=== PATIENT | female | born 1960 | race Caucasian/White ===

== ENCOUNTER 2019-04-22 20:06 | Inpatient (IN) ==
[2019-04-22] MEDS ORDERED: Morphine Sulfate Immed Rel 15 MG TABLET PO STA (20:34)
[2019-04-22] MEDS ORDERED: 0.9 % Sodium Chloride 1,000 ML IVC ONE (20:34)
[2019-04-22] MEDS ORDERED: Ondansetron 4 MG/2 ML VIAL IVP ONE (20:34)
[2019-04-22 21:47] LABS: Alanine Aminotransferase 11 Units/L (7-52); Albumin 4.4 g/dL (3.5-5.7); Albumin/Globulin Ratio 1.3 (1.1-2.2); Alkaline Phosphatase 110 Units/L (34-104); Aspartate Amino Transferase 19 Units/L (13-39); BUN/Creatinine Ratio 17 (6-26); Bilirubin,Direct 0.1 mg/dL (0.0-0.2); Bilirubin,Indirect 0.7 mg/dL (0.0-1.0); Bilirubin,Total 0.8 mg/dL (0.3-1.0); Blood Urea Nitrogen 16 mg/dL (8-23); Calcium 9.7 mg/dL (8.6-10.3); Carbon Dioxide 26 mEq/L (23-29); Chloride 102 mEq/L (98-107); Globulin 3.4 g/dL (2.4-3.5); Glucose 170 mg/dL (70-105); Lipase 19 Units/L (11-82); Osmolality,Calculated 297 (280-300); Potassium 4.4 mEq/L (3.5-5.1); Sodium 141 mEq/L (136-145); Total Protein 7.8 g/dL (6.4-8.9); eGFR For African Americans > 60 (> 60); eGFR For Non-African Americans 59 (> 60)
[2019-04-22 22:07] LABS: Basophils % 0.4 %; Mean Corpuscular Hemoglobin 32.7 pg (28.0-33.3)
[2019-04-22 22:09] LABS: Basophils # 0.1 K/mcL (0.0-0.2); Eosinophils % 0.1 %; Hematocrit 46.2 % (35.3-44.9); Hemoglobin 15.8 g/dL (11.5-15.4); Immature Granulocytes % 0.9 % (0-4); Lymphocytes # 2.9 K/mcL (0.6-4.6); Lymphocytes % 11.4 %; Mean Corpuscular HGB Conc 34.2 g/dL (31.6-35.5); Mean Corpuscular Volume 95.7 fL (83.0-100.0); Mean Platelet Volume 9.6 fL (9.4-12.4); Monocytes # 1.9 K/mcL (0.0-1.3); Monocytes % 7.6 %; Neutrophils # 20.2 K/mcL (1.6-8.9); Platelet Count 358 K/mcL (140-400); Red Blood Count 4.83 M/mcL (3.82-4.97); Red Cell Distribution Width 13.4 % (11.5-14.5); Segmented Neutrophils % 79.6 %; White Blood Count 25.4 K/mcL (4.3-11.1)
[2019-04-22] MEDS ORDERED: *HR* FentaNYL (PF) 100 MCG/2 ML VIAL IVP ONE (22:13)
[2019-04-22] MEDS ORDERED: levoFLOXacin 500 MG/100 ML 500 MG/100 ML BAG IVPB ONE (22:16)
[2019-04-22] MEDS ORDERED: MetroNIDAZOLE 500 MG/100 ML 500 MG/100 ML BAG IVPB ONE (22:16)
[2019-04-22 22:20] LABS: Platelet Estimate Normal (Normal)
[2019-04-22 22:45] LABS: Bilirubin,Urine Small (Negative); Blood,Urine Negative (Negative); Clarity,Urine Clear (Clear); Color,Urine Yellow (Yellow); Glucose,Urine (UA) 100 mg/dL (Normal); Ketones,Urine Negative (Negative); Leukocyte Esterase,Urine Negative (Negative); Nitrite,Urine Negative (Negative); Protein,Urine 30 mg/dL (Neg-Trace); Urobilinogen,Urine Normal (Normal)
[2019-04-22 22:47] LABS: Bacteria,Urine None Seen per hpf (None-Few); Hyaline Casts,Urine None Seen per lpf (None-Few); Squamous Epithelial Cell,Urine Many per lpf (None-Few); WBC,Urine 0-3 per hpf (0-3)
[2019-04-22] MEDS ORDERED: Ipratropium/Albuterol Neb 3 ML IH ONE (22:57)
[2019-04-23] MEDS ORDERED: Naloxone 0.4 MG/ML INJ IVP PRN (00:47)
[2019-04-23] MEDS ORDERED: levoFLOXacin 500 MG/100 ML 500 MG/100 ML BAG IVPB ONE (02:00)
[2019-04-23] MEDS ORDERED: *HR* OxyCODONE/APAP 5/325 TABLET PO ONE (02:31)
[2019-04-23] MEDS: *HR* OxyCODONE/APAP 5/325 TABLET PO PRN ×4 (03:58→21:06)
[2019-04-23 04:54] LABS: Basophils # 0.1 K/mcL (0.0-0.2); Basophils % 0.3 %; Eosinophils % 0.1 %; Hematocrit 41.3 % (35.3-44.9); Immature Granulocytes % 0.6 % (0-4); Lymphocytes % 18.4 %; Mean Corpuscular HGB Conc 33.4 g/dL (31.6-35.5); Mean Corpuscular Hemoglobin 32.5 pg (28.0-33.3); Mean Corpuscular Volume 97.2 fL (83.0-100.0); Mean Platelet Volume 9.8 fL (9.4-12.4); Monocytes # 2.4 K/mcL (0.0-1.3); Neutrophils # 14.9 K/mcL (1.6-8.9); Platelet Count 350 K/mcL (140-400); Red Blood Count 4.25 M/mcL (3.82-4.97); Red Cell Distribution Width 13.5 % (11.5-14.5); Segmented Neutrophils % 69.6 %; White Blood Count 21.4 K/mcL (4.3-11.1)
[2019-04-23 04:55] LABS: Hemoglobin 13.8 g/dL (11.5-15.4)
[2019-04-23 05:06] LABS: BUN/Creatinine Ratio 17 (6-26); Blood Urea Nitrogen 15 mg/dL (8-23); Calcium 8.3 mg/dL (8.6-10.3); Carbon Dioxide 25 mEq/L (23-29); Chloride 105 mEq/L (98-107); Glucose 105 mg/dL (70-105); Osmolality,Calculated 291 (280-300); Potassium 3.6 mEq/L (3.5-5.1); Sodium 140 mEq/L (136-145); eGFR For African Americans > 60 (> 60); eGFR For Non-African Americans > 60 (> 60)
[2019-04-23] MEDS: Cefepime HCl 2,000 MG in Water for inj. (sterile) 20 ML IVP SCH ×2 (06:42→18:59)
[2019-04-23] MEDS: *HR* Heparin 5,000 UNIT/ML VIAL SQ SCH ×3 (06:42→21:43)
[2019-04-23] MEDS: Famotidine 20 MG TABLET PO SCH (09:11)
[2019-04-23] MEDS: Gabapentin 300 MG CAPSULE PO SCH ×2 (09:11→14:08)
[2019-04-23] MEDS: MetroNIDAZOLE 500 MG/100 ML 500 MG/100 ML BAG IVPB SCH ×2 (09:11→16:24)
[2019-04-23 09:36] LABS: INR 1.1; Prothrombin Time 12.2 Seconds (9.4-12.1)
[2019-04-23] MEDS ORDERED: 0.9 % Sodium Chloride 500 ML ONE (10:12)
[2019-04-23] MEDS ORDERED: Nitroglycerin 0.4 MG TAB.SUBL SL PRN (14:22)
[2019-04-23] MEDS ORDERED: *HR* Dextrose 50 % in Water (Syg) 50 ML SYRINGE IVP PRN (17:12)
[2019-04-23] MEDS ORDERED: D5% in Water 1,000 ML IVC PRN (17:12)
[2019-04-23] MEDS ORDERED: Dextrose Gel 15 GM/37.5 ML TUBE PO PRN ×2 (17:12)
[2019-04-23] MEDS: Insulin LISPRO 300 UNITS/3 ML VIAL SQ SCH (18:58)
[2019-04-23] MEDS: Gabapentin 100 MG CAPSULE PO SCH (21:05)
[2019-04-23] MEDS: Insulin DETEMIR 100 UNIT/ML X5UNITS SQ SCH (21:37)
[2019-04-23] MEDS ORDERED: Acetaminophen IV 1,000 MG/100 ML INFUS..BTL IVPB ONE (22:23)
[2019-04-24] MEDS: MetroNIDAZOLE 500 MG/100 ML 500 MG/100 ML BAG IVPB SCH ×4 (00:12→23:13)
[2019-04-24] MEDS: *HR* OxyCODONE/APAP 5/325 TABLET PO PRN ×3 (04:01→21:19)
[2019-04-24] MEDS: Cefepime HCl 2,000 MG in Water for inj. (sterile) 20 ML IVP SCH ×2 (06:10→16:58)
[2019-04-24] MEDS: *HR* Heparin 5,000 UNIT/ML VIAL SQ SCH ×3 (06:10→21:20)
[2019-04-24] MEDS ORDERED: Acetaminophen IV 1,000 MG/100 ML INFUS..BTL IVPB ONE (06:13)
[2019-04-24 07:52] LABS: Basophils # 0.1 K/mcL (0.0-0.2); Basophils % 0.7 %; Eosinophils # 0.2 K/mcL (0.0-0.6); Eosinophils % 1.6 %; Hematocrit 43.7 % (35.3-44.9); Hemoglobin 14.3 g/dL (11.5-15.4); Immature Granulocytes % 0.7 % (0-4); Lymphocytes # 3.2 K/mcL (0.6-4.6); Lymphocytes % 23.6 %; Mean Corpuscular HGB Conc 32.7 g/dL (31.6-35.5); Mean Corpuscular Hemoglobin 32.4 pg (28.0-33.3); Mean Corpuscular Volume 99.1 fL (83.0-100.0); Mean Platelet Volume 9.8 fL (9.4-12.4); Monocytes # 1.7 K/mcL (0.0-1.3); Monocytes % 12.7 %; Neutrophils # 8.2 K/mcL (1.6-8.9); Platelet Count 347 K/mcL (140-400); Red Blood Count 4.41 M/mcL (3.82-4.97); Red Cell Distribution Width 13.7 % (11.5-14.5); Segmented Neutrophils % 60.7 %; White Blood Count 13.5 K/mcL (4.3-11.1)
[2019-04-24 08:12] LABS: Calcium 8.6 mg/dL (8.6-10.3); Magnesium 1.7 mg/dL (1.6-2.6); Potassium 3.8 mEq/L (3.5-5.1)
[2019-04-24] MEDS: Insulin LISPRO 300 UNITS/3 ML VIAL SQ SCH ×3 (10:59→17:00)
[2019-04-24] MEDS: Aspirin Enteric Coated 325 MG Tablet PO SCH (11:02)
[2019-04-24] MEDS: Gabapentin 100 MG CAPSULE PO SCH ×3 (11:02→21:19)
[2019-04-24] MEDS: Famotidine 20 MG TABLET PO SCH (11:02)
[2019-04-24] MEDS: Acetaminophen IV 1,000 MG/100 ML INFUS..BTL IVPB SCH ×3 (12:30→23:13)
[2019-04-24] MEDS: Insulin DETEMIR 100 UNIT/ML X5UNITS SQ SCH (21:20)
[2019-04-25 04:00] LABS: Basophils # 0.1 K/mcL (0.0-0.2); Basophils % 0.7 %; Eosinophils # 0.4 K/mcL (0.0-0.6); Eosinophils % 2.6 %; Hematocrit 39.8 % (35.3-44.9); Hemoglobin 12.9 g/dL (11.5-15.4); Immature Granulocytes % 0.5 % (0-4); Lymphocytes # 5.3 K/mcL (0.6-4.6); Lymphocytes % 35.9 %; Mean Corpuscular HGB Conc 32.4 g/dL (31.6-35.5); Mean Corpuscular Hemoglobin 32.7 pg (28.0-33.3); Mean Corpuscular Volume 100.8 fL (83.0-100.0); Mean Platelet Volume 9.6 fL (9.4-12.4); Monocytes # 1.6 K/mcL (0.0-1.3); Monocytes % 10.8 %; Neutrophils # 7.3 K/mcL (1.6-8.9); Platelet Count 313 K/mcL (140-400); Red Blood Count 3.95 M/mcL (3.82-4.97); Red Cell Distribution Width 13.3 % (11.5-14.5); Segmented Neutrophils % 49.5 %; White Blood Count 14.8 K/mcL (4.3-11.1)
[2019-04-25 04:21] LABS: BUN/Creatinine Ratio 20 (6-26); Blood Urea Nitrogen 20 mg/dL (8-23); Calcium 8.4 mg/dL (8.6-10.3); Carbon Dioxide 28 mEq/L (23-29); Chloride 106 mEq/L (98-107); Glucose 71 mg/dL (70-105); Magnesium 1.8 mg/dL (1.6-2.6); Osmolality,Calculated 297 (280-300); Potassium 3.7 mEq/L (3.5-5.1); Sodium 143 mEq/L (136-145); eGFR For African Americans > 60 (> 60); eGFR For Non-African Americans 58 (> 60)
[2019-04-25] MEDS: Acetaminophen IV 1,000 MG/100 ML INFUS..BTL IVPB SCH (05:32)
[2019-04-25] MEDS: *HR* Heparin 5,000 UNIT/ML VIAL SQ SCH ×3 (05:32→20:48)
[2019-04-25] MEDS: Cefepime HCl 2,000 MG in Water for inj. (sterile) 20 ML IVP SCH (05:33)
[2019-04-25] MEDS: metroNIDAZOLE 500 MG TABLET PO SCH ×3 (08:55→20:47)
[2019-04-25] MEDS: Famotidine 20 MG TABLET PO SCH (08:55)
[2019-04-25] MEDS: Insulin LISPRO 300 UNITS/3 ML VIAL SQ SCH ×4 (08:55→23:12)
[2019-04-25] MEDS: Aspirin Enteric Coated 325 MG Tablet PO SCH (08:55)
[2019-04-25] MEDS: Gabapentin 100 MG CAPSULE PO SCH ×3 (08:55→20:47)
[2019-04-25 09:11] LABS: Estimated Average Glucose 143 mg/dl
[2019-04-25] MEDS: *HR* OxyCODONE/APAP 5/325 TABLET PO PRN (16:12)
[2019-04-26] MEDS: *HR* Heparin 5,000 UNIT/ML VIAL SQ SCH (05:47)
[2019-04-26 07:36] LABS: Basophils # 0.1 K/mcL (0.0-0.2); Basophils % 0.9 %; Eosinophils # 0.5 K/mcL (0.0-0.6); Eosinophils % 3.4 %; Hemoglobin 14.3 g/dL (11.5-15.4); Immature Granulocytes % 0.4 % (0-4); Lymphocytes # 3.6 K/mcL (0.6-4.6); Lymphocytes % 26.9 %; Mean Corpuscular HGB Conc 33.3 g/dL (31.6-35.5); Mean Corpuscular Hemoglobin 32.9 pg (28.0-33.3); Mean Corpuscular Volume 99.1 fL (83.0-100.0); Mean Platelet Volume 9.6 fL (9.4-12.4); Monocytes # 1.4 K/mcL (0.0-1.3); Monocytes % 10.5 %; Neutrophils # 7.7 K/mcL (1.6-8.9); Platelet Count 381 K/mcL (140-400); Red Blood Count 4.34 M/mcL (3.82-4.97); Red Cell Distribution Width 13.2 % (11.5-14.5); Segmented Neutrophils % 57.9 %; White Blood Count 13.4 K/mcL (4.3-11.1)
[2019-04-26] MEDS: Insulin LISPRO 300 UNITS/3 ML VIAL SQ SCH ×2 (08:56→11:30)
[2019-04-26] MEDS: Gabapentin 100 MG CAPSULE PO SCH ×2 (09:14→13:49)
[2019-04-26] MEDS: metroNIDAZOLE 500 MG TABLET PO SCH ×2 (09:15→13:49)
[2019-04-26] MEDS: Famotidine 20 MG TABLET PO SCH (09:15)
[2019-04-26] MEDS: *HR* OxyCODONE/APAP 5/325 TABLET PO PRN (09:19)
[2019-04-26] MEDS: Aspirin Enteric Coated 325 MG Tablet PO SCH (09:19)
[2019-04-26 11:29] VITALS: BP 149/82
== END 2019-04-26 15:12 | disposition home health service (06) ==
LOC: 3ANU 20:06 → EMEROOARM 20:06 → SUATTDRO 22:41 → 3ANU 23:17
PROVIDERS: ADMIT Surgery; ATTEND Internal Medicine
PROC: IRDRAIN (2019-04-23 12:00)

== ENCOUNTER 2019-08-13 00:11 | Inpatient (IN) ==
[2019-08-13] MEDS ORDERED: Isovue-370 500 ML BOTTLE IVP ONE (00:19)
[2019-08-13] MEDS ORDERED: Ondansetron 4 MG/2 ML VIAL IVP ONE ×2 (00:20→14:39)
[2019-08-13 01:08] LABS: Basophils # 0.1 K/mcL (0.0-0.2); Basophils % 0.4 %; Eosinophils # 0.1 K/mcL (0.0-0.6); Eosinophils % 0.5 %; Hematocrit 41.9 % (35.3-44.9); Hemoglobin 13.7 g/dL (11.5-15.4); Immature Granulocytes % 0.4 % (0-4); Lymphocytes # 1.5 K/mcL (0.6-4.6); Lymphocytes % 7.1 %; Mean Corpuscular HGB Conc 32.7 g/dL (31.6-35.5); Mean Corpuscular Hemoglobin 31.7 pg (28.0-33.3); Mean Platelet Volume 9.7 fL (9.4-12.4); Monocytes # 1.2 K/mcL (0.0-1.3); Monocytes % 5.6 %; Platelet Count 367 K/mcL (140-400); Prothrombin Time 11.5 Seconds (9.4-12.1); Red Blood Count 4.32 M/mcL (3.82-4.97); Red Cell Distribution Width 14.3 % (11.5-14.5)
[2019-08-13 01:11] LABS: Activated Partial Thrombo Time 41.5 Seconds (26.0-36.0)
[2019-08-13 01:31] LABS: Alanine Aminotransferase 8 Units/L (7-52); Albumin 3.6 g/dL (3.5-5.7); Albumin/Globulin Ratio 1.1 (1.1-2.2); Alkaline Phosphatase 111 Units/L (34-104); Aspartate Amino Transferase 8 Units/L (13-39); BUN/Creatinine Ratio 15 (6-26); Bilirubin,Direct 0.2 mg/dL (0.0-0.2); Bilirubin,Indirect 0.5 mg/dL (0.0-1.0); Bilirubin,Total 0.7 mg/dL (0.3-1.0); Blood Urea Nitrogen 14 mg/dL (8-23); Calcium 9.5 mg/dL (8.6-10.3); Carbon Dioxide 22 mEq/L (23-29); Chloride 105 mEq/L (98-107); Globulin 3.3 g/dL (2.4-3.5); Glucose 207 mg/dL (70-105); Lipase 5 Units/L (11-82); Osmolality,Calculated 293 (280-300); Potassium 4.1 mEq/L (3.5-5.1); Sodium 138 mEq/L (136-145); Total Protein 6.9 g/dL (6.4-8.9); Troponin I 0.04 ng/mL (< 0.04); eGFR For African Americans > 60 (> 60); eGFR For Non-African Americans > 60 (> 60)
[2019-08-13] MEDS ORDERED: 0.9 % Sodium Chloride 1,000 ML IVC ONE (01:32)
[2019-08-13] MEDS ORDERED: Morphine Sulfate 2 MG/ML SYRINGE IVP ONE (01:56)
[2019-08-13] MEDS ORDERED: Cefepime HCl 2,000 MG in Water for inj. (sterile) 20 ML IVP ONE (02:42)
[2019-08-13] MEDS ORDERED: MetroNIDAZOLE 500 MG/100 ML 500 MG/100 ML BAG IVPB ONE (02:43)
[2019-08-13] MEDS ORDERED: *HR* HYDROmorphone (PF) 1 MG/ML SYRINGE IVP ONE (02:44)
[2019-08-13] MEDS ORDERED: Naloxone 0.4 MG/ML INJ IVP PRN ×2 (03:29→18:08)
[2019-08-13] MEDS ORDERED: Ondansetron 4 MG/2 ML VIAL IVP PRN ×2 (03:29→18:08)
[2019-08-13] MEDS ORDERED: 0.9 % Sodium Chloride 1,000 ML IVC SCH (03:30)
[2019-08-13 03:45] LABS: Bilirubin,Urine Small (Negative); Blood,Urine Negative (Negative); Clarity,Urine Clear (Clear); Color,Urine Dark Yellow (Yellow); Glucose,Urine (UA) 100 mg/dL (Normal); Ketones,Urine Trace mg/dL (Negative); Leukocyte Esterase,Urine Trace (Negative); Nitrite,Urine Negative (Negative); PH,Urine 5.5 pH Units (5.0-8.0); Protein,Urine 100 mg/dL (Neg-Trace); Specific Gravity,Urine > 1.030 (1.010-1.025); Urobilinogen,Urine Normal (Normal)
[2019-08-13 03:48] LABS: Bacteria,Urine None Seen per hpf (None-Few); Squamous Epithelial Cell,Urine Many per lpf (None-Few)
[2019-08-13 03:57] LABS: Hyaline Casts,Urine Few per lpf (None-Few); RBC,Urine 0-3 per hpf (0-3)
[2019-08-13] MEDS: Ketorolac 15 MG/ML VIAL IVP PRN ×2 (04:20→10:44)
[2019-08-13] MEDS ORDERED: Nitroglycerin 0.4 MG TAB.SUBL SL PRN ×2 (04:32→18:08)
[2019-08-13] MEDS ORDERED: *HR* Dextrose 50 % in Water (Syg) 50 ML SYRINGE IVP PRN ×2 (04:39→18:08)
[2019-08-13] MEDS ORDERED: D5% in Water 1,000 ML IVC PRN ×2 (04:39→18:08)
[2019-08-13] MEDS ORDERED: Dextrose Gel 15 GM/37.5 ML TUBE PO PRN ×4 (04:39→18:08)
[2019-08-13] MEDS: Insulin LISPRO 300 UNITS/3 ML VIAL SQ SCH ×3 (06:30→17:19)
[2019-08-13 07:26] LABS: Basophils # 0.1 K/mcL (0.0-0.2); Basophils % 0.3 %; Hematocrit 41.7 % (35.3-44.9); Hemoglobin 13.1 g/dL (11.5-15.4); Immature Granulocytes % 0.5 % (0-4); Lymphocytes # 1.9 K/mcL (0.6-4.6); Lymphocytes % 8.1 %; Mean Corpuscular HGB Conc 31.4 g/dL (31.6-35.5); Mean Corpuscular Hemoglobin 30.8 pg (28.0-33.3); Mean Corpuscular Volume 97.9 fL (83.0-100.0); Mean Platelet Volume 9.9 fL (9.4-12.4); Monocytes # 1.6 K/mcL (0.0-1.3); Monocytes % 7.2 %; Neutrophils # 19.2 K/mcL (1.6-8.9); Platelet Count 369 K/mcL (140-400); Red Blood Count 4.26 M/mcL (3.82-4.97); Red Cell Distribution Width 14.6 % (11.5-14.5); Segmented Neutrophils % 83.9 %; White Blood Count 22.9 K/mcL (4.3-11.1)
[2019-08-13] MEDS: Gabapentin 100 MG CAPSULE PO SCH ×3 (08:07→22:16)
[2019-08-13 08:12] LABS: Alanine Aminotransferase 8 Units/L (7-52); Albumin 3.4 g/dL (3.5-5.7); Albumin/Globulin Ratio 1.1 (1.1-2.2); Alkaline Phosphatase 103 Units/L (34-104); Aspartate Amino Transferase 7 Units/L (13-39); BUN/Creatinine Ratio 16 (6-26); Bilirubin,Total 0.7 mg/dL (0.3-1.0); Blood Urea Nitrogen 14 mg/dL (8-23); Carbon Dioxide 25 mEq/L (23-29); Chloride 104 mEq/L (98-107); Globulin 3.2 g/dL (2.4-3.5); Glucose 175 mg/dL (70-105); Osmolality,Calculated 291 (280-300); Potassium 4.3 mEq/L (3.5-5.1); Sodium 138 mEq/L (136-145); Total Protein 6.6 g/dL (6.4-8.9); eGFR For African Americans > 60 (> 60); eGFR For Non-African Americans > 60 (> 60)
[2019-08-13] MEDS ORDERED: Aspirin Enteric Coated 81 MG Tablet PO SCH ×2 (09:00)
[2019-08-13] MEDS ORDERED: lisinopriL 10 MG TABLET PO SCH (09:00)
[2019-08-13] MEDS ORDERED: NON-FORMULARY MEDICATION 1 EACH EACH (Omega-3/Dha/Epa/Fish Oil [Fish Oil 1,000 Mg Softgel] PO SCH (09:00)
[2019-08-13] MEDS ORDERED: cefOXitin 1,000 MG, 0.9 % Sodium Chloride 1,000 ML IR ONE (10:00)
[2019-08-13] MEDS ORDERED: cefOXitin 1,000 MG, Sodium Chloride IRRigation 1,000 ML IR ONE ×2 (10:00→18:08)
[2019-08-13] MEDS ORDERED: MetroNIDAZOLE 500 MG/100 ML 500 MG/100 ML BAG IVPB SCH (12:00)
[2019-08-13] MEDS ORDERED: Ondansetron 4 MG/2 ML VIAL ONE (14:36)
[2019-08-13] MEDS ORDERED: *HR* Succinylcholine 200 MG/10 ML VIAL IVP ONE (14:36)
[2019-08-13] MEDS ORDERED: Lidocaine -MPF 2% 2 ML VIAL ONE (14:36)
[2019-08-13] MEDS ORDERED: *HR* Rocuronium Bromide 50 MG/5 ML VIAL ONE (14:36)
[2019-08-13] MEDS ORDERED: Dexamethasone 4 MG/ML VIAL ONE (14:36)
[2019-08-13] MEDS ORDERED: *HR* FentaNYL (PF) 100 MCG/2 ML VIAL ONE (14:36)
[2019-08-13] MEDS ORDERED: *HR* Propofol 200 MG/20 ML VIAL IVP ONE (14:37)
[2019-08-13] MEDS ORDERED: *HR* HYDROmorphone PF 0.5 MG/0.5 ML SYRINGE IVP PRN (14:39)
[2019-08-13] MEDS ORDERED: *HR* OxyCODONE Immed Rel 5 MG TABLET PO PRN (14:39)
[2019-08-13] MEDS ORDERED: Cefepime HCl 2,000 MG in 0.9 % Sodium Chloride Mini Bag 100 ML IVPB SCH (15:00)
[2019-08-13] MEDS ORDERED: *HR* HYDROMORPHONE 2 MG/ML VIAL ONE (16:08)
[2019-08-13] MEDS: MetroNIDAZOLE 500 MG/100 ML 500 MG/100 ML BAG IVPB SCH (20:12)
[2019-08-13] MEDS: Morphine Sulfate 2 MG/ML SYRINGE IVP PRN (21:14)
[2019-08-14] MEDS: Insulin LISPRO 300 UNITS/3 ML VIAL SQ SCH ×5 (01:10→23:57)
[2019-08-14] MEDS: Morphine Sulfate 2 MG/ML SYRINGE IVP PRN (01:32)
[2019-08-14] MEDS: Cefepime HCl 2,000 MG in 0.9 % Sodium Chloride Mini Bag 100 ML IVPB SCH ×2 (02:57→14:29)
[2019-08-14] MEDS: MetroNIDAZOLE 500 MG/100 ML 500 MG/100 ML BAG IVPB SCH ×3 (03:36→20:38)
[2019-08-14] MEDS ORDERED: Acetaminophen IV 1,000 MG/100 ML INFUS..BTL IVPB ONE (05:39)
[2019-08-14] MEDS: lisinopriL 10 MG TABLET PO SCH (08:36)
[2019-08-14] MEDS: Gabapentin 100 MG CAPSULE PO SCH ×3 (08:38→20:40)
[2019-08-14] MEDS: Aspirin Enteric Coated 81 MG Tablet PO SCH (08:39)
[2019-08-14] MEDS: *HR* OxyCODONE Immed Rel 5 MG TABLET PO PRN ×2 (13:37→20:44)
[2019-08-14] MEDS ORDERED: Ketorolac 15 MG/ML VIAL IVP ONE (22:20)
[2019-08-15] MEDS: Cefepime HCl 2,000 MG in 0.9 % Sodium Chloride Mini Bag 100 ML IVPB SCH ×2 (02:14→15:29)
[2019-08-15 02:15] LABS: Basophils # 0.1 K/mcL (0.0-0.2); Basophils % 0.3 %; Eosinophils % 0.2 %; Hematocrit 38.7 % (35.3-44.9); Immature Granulocytes % 0.8 % (0-4); Lymphocytes # 2.8 K/mcL (0.6-4.6); Lymphocytes % 14.4 %; Mean Corpuscular HGB Conc 30.7 g/dL (31.6-35.5); Mean Corpuscular Hemoglobin 30.7 pg (28.0-33.3); Mean Platelet Volume 10.3 fL (9.4-12.4); Monocytes # 1.6 K/mcL (0.0-1.3); Monocytes % 8.2 %; Neutrophils # 14.9 K/mcL (1.6-8.9); Platelet Count 313 K/mcL (140-400); Red Blood Count 3.87 M/mcL (3.82-4.97); Red Cell Distribution Width 14.8 % (11.5-14.5); Segmented Neutrophils % 76.1 %; White Blood Count 19.6 K/mcL (4.3-11.1)
[2019-08-15 02:19] LABS: Hemoglobin 11.9 g/dL (11.5-15.4)
[2019-08-15 02:28] LABS: BUN/Creatinine Ratio 24 (6-26); Blood Urea Nitrogen 22 mg/dL (8-23); Calcium 8.9 mg/dL (8.6-10.3); Carbon Dioxide 24 mEq/L (23-29); Chloride 108 mEq/L (98-107); Glucose 103 mg/dL (70-105); Osmolality,Calculated 292 (280-300); Potassium 4.7 mEq/L (3.5-5.1); Sodium 139 mEq/L (136-145); eGFR For African Americans > 60 (> 60); eGFR For Non-African Americans > 60 (> 60)
[2019-08-15] MEDS: MetroNIDAZOLE 500 MG/100 ML 500 MG/100 ML BAG IVPB SCH ×3 (02:54→19:39)
[2019-08-15] MEDS: *HR* OxyCODONE Immed Rel 5 MG TABLET PO PRN ×4 (04:45→21:27)
[2019-08-15] MEDS: Insulin LISPRO 300 UNITS/3 ML VIAL SQ SCH ×3 (05:36→17:56)
[2019-08-15] MEDS: Gabapentin 100 MG CAPSULE PO SCH ×3 (08:28→19:40)
[2019-08-15] MEDS: Aspirin Enteric Coated 81 MG Tablet PO SCH (08:28)
[2019-08-15] MEDS: lisinopriL 10 MG TABLET PO SCH (08:29)
[2019-08-15] MEDS ORDERED: Acetaminophen 325 MG TABLET PO PRN (21:29)
[2019-08-15] MEDS ORDERED: *HR* Metoprolol 5 MG/5 ML VIAL IVP ONE ×3 (22:27→23:16)
[2019-08-15] MEDS ORDERED: Morphine Sulfate 2 MG/ML SYRINGE IVP ONE (22:29)
[2019-08-15] MEDS ORDERED: Levalbuterol Neb 1.25 MG/3 ML IH PRN (22:30)
[2019-08-15] MEDS ORDERED: 0.9 % Sodium Chloride 250 ML IVC ONE (23:38)
[2019-08-15] MEDS ORDERED: Ipratropium Neb 0.5 MG NEBULIZER IH PRN (23:45)
[2019-08-16] MEDS ORDERED: Heparin 25,000 UNIT/250 ML D5W 25,000 UNIT/250 ML IV.SOLN IVC SCH
[2019-08-16] MEDS: Insulin LISPRO 300 UNITS/3 ML VIAL SQ SCH ×4 (00:43→17:33)
[2019-08-16 00:46] LABS: Hematocrit 35.7 % (35.3-44.9); Hemoglobin 11.2 g/dL (11.5-15.4); Mean Corpuscular HGB Conc 31.4 g/dL (31.6-35.5); Mean Corpuscular Hemoglobin 31.2 pg (28.0-33.3); Mean Corpuscular Volume 99.4 fL (83.0-100.0); Platelet Count 287 K/mcL (140-400); Red Blood Count 3.59 M/mcL (3.82-4.97); Red Cell Distribution Width 14.7 % (11.5-14.5); White Blood Count 14.8 K/mcL (4.3-11.1)
[2019-08-16 00:51] LABS: INR 1.2; Prothrombin Time 13.9 Seconds (9.4-12.1)
[2019-08-16] MEDS: *HR* OxyCODONE Immed Rel 5 MG TABLET PO PRN ×5 (01:44→22:54)
[2019-08-16 01:48] LABS: Hematocrit 37.4 % (35.3-44.9); Hemoglobin 11.6 g/dL (11.5-15.4); Mean Platelet Volume 10.2 fL (9.4-12.4); Platelet Count 302 K/mcL (140-400); Red Blood Count 3.74 M/mcL (3.82-4.97); Red Cell Distribution Width 14.8 % (11.5-14.5)
[2019-08-16 02:08] LABS: BUN/Creatinine Ratio 30 (6-26); Blood Urea Nitrogen 27 mg/dL (8-23); Calcium 8.6 mg/dL (8.6-10.3); Carbon Dioxide 25 mEq/L (23-29); Chloride 109 mEq/L (98-107); Glucose 128 mg/dL (70-105); Osmolality,Calculated 293 (280-300); Potassium 4.8 mEq/L (3.5-5.1); Sodium 138 mEq/L (136-145); eGFR For African Americans > 60 (> 60); eGFR For Non-African Americans > 60 (> 60)
[2019-08-16] MEDS: Cefepime HCl 2,000 MG in 0.9 % Sodium Chloride Mini Bag 100 ML IVPB SCH ×2 (03:09→16:12)
[2019-08-16] MEDS: MetroNIDAZOLE 500 MG/100 ML 500 MG/100 ML BAG IVPB SCH ×3 (03:43→20:15)
[2019-08-16] MEDS: Famotidine 20 MG TABLET PO SCH (07:58)
[2019-08-16] MEDS: Aspirin Enteric Coated 81 MG Tablet PO SCH (07:58)
[2019-08-16] MEDS: Gabapentin 100 MG CAPSULE PO SCH ×3 (07:58→20:14)
[2019-08-16] MEDS: lisinopriL 10 MG TABLET PO SCH (10:03)
[2019-08-16] MEDS: *HR* Rivaroxaban 10 MG TABLET PO SCH (16:12)
[2019-08-17] MEDS: Insulin LISPRO 300 UNITS/3 ML VIAL SQ SCH ×3 (00:01→21:08)
[2019-08-17 01:11] LABS: Hematocrit 38.2 % (35.3-44.9); Hemoglobin 11.8 g/dL (11.5-15.4); Mean Corpuscular HGB Conc 30.9 g/dL (31.6-35.5); Mean Corpuscular Hemoglobin 30.8 pg (28.0-33.3); Mean Corpuscular Volume 99.7 fL (83.0-100.0); Mean Platelet Volume 9.9 fL (9.4-12.4); Platelet Count 321 K/mcL (140-400); Red Blood Count 3.83 M/mcL (3.82-4.97); Red Cell Distribution Width 14.6 % (11.5-14.5); White Blood Count 12.3 K/mcL (4.3-11.1)
[2019-08-17 01:27] LABS: BUN/Creatinine Ratio 26 (6-26); Blood Urea Nitrogen 20 mg/dL (8-23); Calcium 8.8 mg/dL (8.6-10.3); Carbon Dioxide 27 mEq/L (23-29); Chloride 105 mEq/L (98-107); Glucose 107 mg/dL (70-105); Osmolality,Calculated 287 (280-300); Potassium 5.1 mEq/L (3.5-5.1); Sodium 137 mEq/L (136-145); eGFR For African Americans > 60 (> 60); eGFR For Non-African Americans > 60 (> 60)
[2019-08-17] MEDS: Cefepime HCl 2,000 MG in 0.9 % Sodium Chloride Mini Bag 100 ML IVPB SCH (03:11)
[2019-08-17] MEDS: MetroNIDAZOLE 500 MG/100 ML 500 MG/100 ML BAG IVPB SCH (03:41)
[2019-08-17] MEDS: *HR* OxyCODONE Immed Rel 5 MG TABLET PO PRN ×4 (04:21→21:07)
[2019-08-17] MEDS: lisinopriL 10 MG TABLET PO SCH (09:45)
[2019-08-17] MEDS: Famotidine 20 MG TABLET PO SCH (09:45)
[2019-08-17] MEDS: Gabapentin 100 MG CAPSULE PO SCH ×3 (09:46→21:07)
[2019-08-17] MEDS: *HR* Rivaroxaban 10 MG TABLET PO SCH (18:07)
[2019-08-18 05:15] LABS: Hematocrit 36.6 % (35.3-44.9); Hemoglobin 11.6 g/dL (11.5-15.4); Mean Corpuscular HGB Conc 31.7 g/dL (31.6-35.5); Mean Corpuscular Hemoglobin 30.9 pg (28.0-33.3); Mean Corpuscular Volume 97.6 fL (83.0-100.0); Mean Platelet Volume 9.8 fL (9.4-12.4); Platelet Count 314 K/mcL (140-400); Red Blood Count 3.75 M/mcL (3.82-4.97); Red Cell Distribution Width 14.5 % (11.5-14.5); White Blood Count 12.2 K/mcL (4.3-11.1)
[2019-08-18 05:36] LABS: BUN/Creatinine Ratio 26 (6-26); Blood Urea Nitrogen 16 mg/dL (8-23); Calcium 8.9 mg/dL (8.6-10.3); Carbon Dioxide 24 mEq/L (23-29); Chloride 105 mEq/L (98-107); Glucose 100 mg/dL (70-105); Osmolality,Calculated 285 (280-300); Potassium 4.4 mEq/L (3.5-5.1); Sodium 137 mEq/L (136-145); eGFR For African Americans > 60 (> 60); eGFR For Non-African Americans > 60 (> 60)
[2019-08-18] MEDS: lisinopriL 10 MG TABLET PO SCH (08:17)
[2019-08-18] MEDS: Famotidine 20 MG TABLET PO SCH (08:18)
[2019-08-18] MEDS: *HR* OxyCODONE Immed Rel 5 MG TABLET PO PRN ×3 (08:18→20:38)
[2019-08-18] MEDS: Gabapentin 100 MG CAPSULE PO SCH ×3 (08:18→20:38)
[2019-08-18] MEDS: *HR* Rivaroxaban 10 MG TABLET PO SCH (16:26)
[2019-08-18] MEDS: Insulin LISPRO 300 UNITS/3 ML VIAL SQ SCH (20:34)
[2019-08-19 02:44] LABS: Hematocrit 35.7 % (35.3-44.9); Hemoglobin 11.3 g/dL (11.5-15.4); Mean Corpuscular HGB Conc 31.7 g/dL (31.6-35.5); Mean Corpuscular Volume 97.8 fL (83.0-100.0); Platelet Count 336 K/mcL (140-400); Red Blood Count 3.65 M/mcL (3.82-4.97); Red Cell Distribution Width 14.5 % (11.5-14.5); White Blood Count 12.9 K/mcL (4.3-11.1)
[2019-08-19] MEDS: *HR* OxyCODONE Immed Rel 5 MG TABLET PO PRN (06:55)
[2019-08-19] MEDS ORDERED: Cefdinir 300 MG CAPSULE PO SCH (09:00)
[2019-08-19] MEDS: lisinopriL 10 MG TABLET PO SCH (09:13)
[2019-08-19] MEDS: Famotidine 20 MG TABLET PO SCH (09:13)
[2019-08-19] MEDS: Gabapentin 100 MG CAPSULE PO SCH ×2 (09:13→15:00)
[2019-08-19] MEDS: *HR* Rivaroxaban 10 MG TABLET PO SCH (19:03)
[2019-08-19 19:05] VITALS: BP 145/75
== END 2019-08-19 20:00 | disposition home health service (06) | DRG 263 ==
LOC: 3BNU 00:11 → EMEROOARM 00:11 → SUATTDRO 03:20 → 3BNU 03:47
PROVIDERS: ADMIT Student in an Organized Health Care Education/Training Program; ATTEND Pharmacist